=== PATIENT | female | born 2000 | race Caucasian/White ===

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

== ENCOUNTER → 2020-01-10 12:28 | Outpatient (BNVA) | payer MEDICAID, SELFPAY | PROVIDERS: Visit Provider Obstetrics & Gynecology | DX: O99.330 Smoking (tobacco) complicating pregnancy, unspecified trimester (principal); Z34.90 Encounter for supervision of normal pregnancy, unspecified, unspecified trimester; O99.320 Drug use complicating pregnancy, unspecified trimester; Z3A.00 Weeks of gestation of pregnancy not specified | CPT/HCPCS: 80053; 80307; 84315; 85027; 86592; 86762; 86803; 86850; 86900; 87086; 87340 ==

== ENCOUNTER → 2020-01-31 08:25 | Outpatient (BNVA) | payer MEDICAID, SELFPAY | PROVIDERS: Visit Provider Obstetrics & Gynecology | DX: Z34.90 Encounter for supervision of normal pregnancy, unspecified, unspecified trimester (principal) | CPT/HCPCS: 84315; 87491; 87591 ==

== ENCOUNTER → 2020-02-21 15:23 | Outpatient (BNVA) | payer MEDICAID, SELFPAY | PROVIDERS: Visit Provider Nurse Practitioner Women's Health | DX: R82.71 Bacteriuria (principal) | CPT/HCPCS: 84315; 87077; 87086; 87184 ==

== ENCOUNTER → 2020-03-21 10:30 | Outpatient (BNVA) | payer MEDICAID, SELFPAY | PROVIDERS: Visit Provider Obstetrics & Gynecology | DX: O99.320 Drug use complicating pregnancy, unspecified trimester (principal); O99.330 Smoking (tobacco) complicating pregnancy, unspecified trimester; R82.71 Bacteriuria | CPT/HCPCS: 80307; 84315 ==

== ENCOUNTER → 2020-03-27 12:53 | Outpatient (BNVA) | payer MEDICAID, SELFPAY | PROVIDERS: Visit Provider Nurse Practitioner Family | DX: Z20.828 Contact with and (suspected) exposure to other viral communicable diseases (principal); J98.8 Other specified respiratory disorders; B97.89 Other viral agents as the cause of diseases classified elsewhere | CPT/HCPCS: 87635 ==

== ENCOUNTER → 2020-04-17 12:15 | Outpatient (BNVA) | payer MEDICAID, SELFPAY | PROVIDERS: Visit Provider Obstetrics & Gynecology | DX: O99.320 Drug use complicating pregnancy, unspecified trimester (principal); O99.330 Smoking (tobacco) complicating pregnancy, unspecified trimester; R82.71 Bacteriuria | CPT/HCPCS: 84315; 87086 ==

== ENCOUNTER 2020-05-13 13:12 | Outpatient (CLI) | payer MEDICAID, SELFPAY ==
[2020-05-13] VITALS (10 sets, daily range): BP systolic 98–121; BP diastolic 55–65; PULSE 74–90; RESP 16; TEMP 36.3; BMI 31.4
[2020-05-13 15:13] LABS: Bilirubin Urine Neg (Negative); Blood Urine Neg (Negative); Glucose Urine UA Norm (Normal); Ketones Urine Negative (Negative); Leukocyte Esterase Urine Negative (Negative); Nitrate Urine Negative (Negative); Protein Urine Neg (Negative); Specific Gravity, Urine 1.015 (1.005-1.030); Sulfosalicylic Acid Urine Negative (Negative); Urine Appearance Clear (CLEAR); Urine Color Yellow (Yellow); Urobilinogen Urine Norm (Negative); pH Urine 9 (5-7)
[2020-05-13 15:15] LABS: Bacteria Urine 2+ /hpf; Mucus Urine 1+ /hpf; WBC Urine 0-4 /hpf (0-5)
[2020-05-13 15:16] LABS: Add Urine Culture? No
== END 2020-05-13 15:35 | disposition home or self-care (01) ==
LOC: OPOB 13:20 → OBGYN 15:21
PROVIDERS: Visit Provider Obstetrics & Gynecology
DX: O26.899 Other specified pregnancy related conditions, unspecified trimester (principal); Z3A.00 Weeks of gestation of pregnancy not specified; M54.9 Dorsalgia, unspecified; R10.2 Pelvic and perineal pain
CPT/HCPCS: 59025; 81001; 87086; 99211

== ENCOUNTER → 2020-05-18 09:05 | Outpatient (BNVA) | payer MEDICAID, SELFPAY | PROVIDERS: Visit Provider Obstetrics & Gynecology | DX: O99.320 Drug use complicating pregnancy, unspecified trimester (principal); O99.330 Smoking (tobacco) complicating pregnancy, unspecified trimester; R82.71 Bacteriuria; Z3A.00 Weeks of gestation of pregnancy not specified | CPT/HCPCS: 82950; 84315; 85027 ==

== ENCOUNTER 2020-06-27 12:28 | Outpatient (CLI) | payer MEDICAID, SELFPAY ==
[2020-06-27] VITALS (8 sets, daily range): BP systolic 119–129; BP diastolic 58–76; PULSE 70–126; RESP 18; TEMP 36.4; BMI 32.4
--- NOTE | 2020-06-27 13:18 | US_ITS ---
WS: [id number] BIOPHYSICAL PROFILE HISTORY: Decreased movement COMPARISON: 03/19/2020 Cardiac activity: 131 bpm. Cervix: closed. Position: Vertex. Placenta: Anterior, no previa or abruption. Placenta grade: 2 Parameters are as follows: Breathin Movement: 2 Tone: 2 Fluid volume: 2 Largest pocket of amniotic fluid 4.2 cm. US/US OB BPP wo NST [id number] IMPRESSION: 1. Biophysical profile score: 8/8. 2. Vertex position.
[2020-06-27 14:10] LABS: Nitrazine Paper, PH Negative
== END 2020-06-27 14:25 | disposition home or self-care (01) ==
LOC: OPOB 12:30 → OBGYN 12:31
PROVIDERS: Obstetrics & Gynecology; Visit Provider Obstetrics & Gynecology
DX: O36.8190 Decreased fetal movements, unspecified trimester, not applicable or unspecified (principal); N89.8 Other specified noninflammatory disorders of vagina; Z3A.00 Weeks of gestation of pregnancy not specified
CPT/HCPCS: 59025; 76819; 83986; 99211

== ENCOUNTER → 2020-07-10 08:07 | Outpatient (BNVA) | payer MEDICAID, SELFPAY | PROVIDERS: Visit Provider Obstetrics & Gynecology | DX: O99.013 Anemia complicating pregnancy, third trimester (principal); R82.71 Bacteriuria; O99.330 Smoking (tobacco) complicating pregnancy, unspecified trimester; O99.320 Drug use complicating pregnancy, unspecified trimester; O36.60X0 Maternal care for excessive fetal growth, unspecified trimester, not applicable or unspecified; Z3A.00 Weeks of gestation of pregnancy not specified | CPT/HCPCS: 80307; 84315; 87081 ==

== ENCOUNTER 2020-07-12 09:10 | Outpatient (CLI) | payer MEDICAID, SELFPAY ==
[2020-07-12 09:27] VITALS: BP 106/60; PULSE 117
[2020-07-12 09:39] VITALS: TEMP 36.6; BMI 34.3
[2020-07-12 09:57] VITALS: BP 115/73; PULSE 111
[2020-07-12 10:52] VITALS: BP 109/59; PULSE 95
[2020-07-12 11:00] VITALS: BP 109/59; PULSE 95; RESP 18; TEMP 36.6
== END 2020-07-12 11:00 | disposition home or self-care (01) ==
LOC: OPOB 09:14 → OBGYN 09:26
PROVIDERS: Visit Provider Obstetrics & Gynecology
DX: O26.899 Other specified pregnancy related conditions, unspecified trimester (principal); Z3A.00 Weeks of gestation of pregnancy not specified; R10.2 Pelvic and perineal pain
CPT/HCPCS: 99211

== ENCOUNTER 2020-07-19 00:44 | Outpatient (CLI) | payer MEDICAID, SELFPAY ==
[2020-07-19] VITALS (16 sets, daily range): BP systolic 114–124; BP diastolic 78–79; PULSE 66–98; RESP 17–18; TEMP 36.3–36.6; O2SAT 97–100; BMI 34.1
== END 2020-07-19 03:13 | disposition home or self-care (01) ==
LOC: OPOB 00:49 → OBGYN 00:50
PROVIDERS: Visit Provider Obstetrics & Gynecology
DX: O26.899 Other specified pregnancy related conditions, unspecified trimester (principal); Z3A.00 Weeks of gestation of pregnancy not specified; R10.9 Unspecified abdominal pain
CPT/HCPCS: 59025; 99211

== ENCOUNTER 2020-07-25 15:53 | Inpatient (IN) | payer MEDICAID, SELFPAY ==
[2020-07-25] VITALS (90 sets, daily range): BP systolic 94–149; BP diastolic 52–87; PULSE 68–190; RESP 15–18; TEMP 36.3–37.8; O2SAT 91–100; BMI 34.4
[2020-07-25 02:10] LABS: Basophils % 0.2 %; Eosinophils % 0.2 %; Hematocrit 33.7 % (37.0-47.0); Hemoglobin 10.5 g/dL (11.5-15.3); Lymphocytes # 1.9 10^3/uL (1.5-6.5); Lymphocytes % 16.9 %; Mean Corpuscular HGB Conc 31.2 g/dL (30.0-36.0); Mean Corpuscular Hemoglobin 25.2 pg (28.0-34.0); Mean Platelet Volume 10.7 fL (7.4-10.4); Monocytes # 0.7 10^3/uL (0.2-0.9); Neutrophils # 8.49 10^3/uL (1.8-8.0); Neutrophils % 76.1 %; Nucleated Red Blood Cells % 0 %; Platelet Count 295 10^3/cmm (130-400); Red Blood Count 4.16 10^6/uL (4.1-5.3); Red Cell Distribution Width 14.6 % (12.1-15.1); White Blood Count 11.2 10^3/uL (4.5-13.0)
[2020-07-25] MEDS: ampicillin 2,000 MG in sodium chloride 0.9% (plus) 50 ML 100 MG IV (02:22)
[2020-07-25] MEDS: dextrose 5%-lactated ringers 1,000 ML 125 ML IV ×2 (02:22→10:20)
[2020-07-25] MEDS: fentaNYL 50 mcg/mL INJ 2mL IVP ×2 (02:44→04:16)
[2020-07-25] MEDS: lactated ringers 1,000 ML 999 ML IV ×2 (03:25→11:09)
[2020-07-25] MEDS: ondansetron 2 mg/ML SDV 2 mL 4 MG IVP ×2 (03:51→13:09)
--- NOTE | 2020-07-25 04:30 | ANES.PREANE2 ---
Pre-Anesthetic Assessment Pre-Anesthetic Assessment: Height/Weight: Height 1.7 m Weight 99.79 kg Temp Pulse Resp BP 97.9 F 77 15 122/63 07/25/20 01:20 07/25/20 04:10 07/25/20 04:16 07/25/20 04:10 Preop Diagnosis: labor pains Proposed Procedure: epiduralk Was Beta Stephanie taken within 24 hours: N/A Was Clonidine taken within 24 hours: N/A Exam: Pre-Anes Outpt Exam: alert, oriented x 3, clear to auscultation bilaterally and regular rate & rhythm Airway: Submandibular: WNL Cervical ROM: WNL MP: 2 Dentition: Full Pulmonary: Pulmonary: None reported CV/HEM: CV/HEM: Anemia : : None reported Hepatic: Hepatic: None reported GI: GI: None reported Metabolic: Metabolic: None reported Musc/skel: Musc/skel: None reported Neuropsych: Neuropsych: None reported Anesthetic Plan: ASA status: 2 Anesthesia: Regional (specify below) Risk of > 500 ml blood loss (7ml/kg in children): No Meds/Allergies Current Medications: Current Medications Generic Name Dose Route Start Last Admin Trade Name Freq PRN Reason Stop Dose Admin Fentanyl 25 - 100 mcg 07/25/20 01:50 07/25/20 04:16 Fentanyl 50 Mcg/ Ml Inj 2ml IVP 50 mcg Q1H PRN Administration SEVERE PAIN Dextrose/Lactated Ringer's 1,000 mls @ 125 m ls/hr 07/25/20 02:00 07/25/20 02:22 Dextrose 5%-Lact ated Ringers IV 125 mls/hr .Q8H ROMERO Administration Lactated Ringer's 1,000 mls @ 999 m ls/hr 07/25/20 03:13 07/25/20 03:25 Lactated Ringers IV 999 mls/hr .Q1H1M PRN Administration See label comment s Ondansetron HCl 4 mg 07/25/20 01:50 07/25/20 03:51 Ondansetron 2 Mg /Ml Sdv 2 Ml IVP 4 mg Q4H PRN Administration NAUSEA AND VOMITI NG PFSH Anesthesia PFSH: Medical History No pertinent past medical history Denies diabetes, asthma, hypertension, seizures, DVT/PE PMD: Dr. Means Surgical History Hx of tonsillectomy September 2018 Hx of wisdom tooth extraction 2015 Family History Grandfather Diabetes Paternal Family/Other Heart disease maternal aunt Denies family history of Colon cancer Ovarian cancer Hypercholesteremia Breast cancer Bleeding disorder Hypertension Uterine cancer Thyroid disease Stroke Social History Smoking and tobacco status: former smoker Alcohol intake: former Additional social history: Tobacco: former smoker Drugs: marijuana hx Alcohol: denies Female Reproductive History: : 1 Data Anesthesia CBC & Chem 7: 07/25/20 02:00 Other Labs: Laboratory Results - last 48 hr 07/25/20 02:00 WBC 11.2 RBC 4.16 Hgb 10.5 L Hct 33.7 L MCV 81.0 MCH 25.2 L MCHC 31.2 RDW 14.6 Plt Count 295 MPV 10.7 H Neut % (Auto) 76.1 Lymph % (Auto) 16.9 [place] % (Auto) 6.0 Eos % (Auto) 0.2 Baso % (Auto) 0.2 Neut # (Auto) 8.49 H Lymph # (Auto) 1.9 [place] # (Auto) 0.7 Eos # (Auto) 0.0 Baso # (Auto) 0.0 Nucleated RBC % (auto) 0 Nucleated RBCs # 0.0 Cardiac Studies: No Data to Display
--- NOTE | 2020-07-25 05:17 | P.ANES_ITS ---
Anesthesia Procedures Procedure/Date: 07/25/20 epidural Procedure Narrative: epidural complete, bolus given, epidural pump initiated with INTERIOR ASSEMBLIES INSTALLER education given, vitals taken during procedure using OBIX system and satisfactory throughout, patient admits to decrease pain, report of procedure to OB RN Epidural: Time Out Performed: Yes Consents Signed: Procedure Consent Consent: requested by attending/covering physician, from patient, risks and benefits reviewed and patient agrees to proceed Lumbar Level: L3-L4 Epidural position: sitting Epidural procedure: sterile prep of area, 1% lidocaine to numb the area (3 mL), 18 g needle, negative for paresthesia passed, neg for paresthesia, test dose given, 1.5% xylocaine 1:200k epi (5 mL), 0.2% Ropivacaine bolus ml (5 mL), placed PCEA, no systemic response, sterile dressing applied, L.U.D. no apparent complications and 0.2% Ropiavacaine @ mls/hr (13 mL/hr)
--- NOTE | 2020-07-25 05:54 | PC.NURSE ---
IV catheter noted to be pulled partially out. Dressing changed, IV advanced and secured.
[2020-07-25] MEDS: ampicillin 1,000 MG in sodium chloride 0.9% (plus) 50 ML 100 MG IV ×3 (06:21→14:29)
[2020-07-25] MEDS: oxytocin 30 UNIT/500 ML BAG IV (12:21)
--- NOTE | 2020-07-25 16:16 | PM.DELIVERY ---
Delivery Note: Date of delivery: July 25, 2020 Pre-delivery diagnoses: iup at 38 6/7, labor at term Procedure: Op report anesthesia: Epidural Delivering Physician: sabas Estimated blood loss (mL): 50 Delivery: The patient had complete cervical dilation and began to push. The head delivered in the straight OA position over an intact perineum under epidural anesthesia. The nose and mouth were bulb suctioned. The shoulders and body delivered atraumatically. The baby was placed onto the mother's abdomen. The cord was clamped and cut. Cord blood was obtained. The placenta delivered spontaneously. It was inspected and found to be intact. Inspection of the perineum revealed bilateral periurethral tears and a periclitoral tear. Estimated blood loss 50 mL. Apgars on baby were 8 at 1 minute and 9 at 5 minutes. Weight of baby is 8 pounds 5 ounces. Mother and baby were stable post delivery. Coding Level of Care Code Acute Residential Mental Health Worker for Segundo Mcqueen
[2020-07-25] MEDS: acetaminophen 325 mg Tablet 650 MG PO (16:19)
--- NOTE | 2020-07-25 16:20 | P.HP_ITS ---
Providers/Chief Complaint Admitting Physician: Elzbieta Mota MD Chief Complaint: contractions HPI [facility] History of Present Illness Diana Mari is a 19 year old female at 38 6/7 weeks, who pr esents in active labor. Her is complicated by GBS positive and anemia Present Details : 1 Para: 0 Labs Rubella: Immune RPR: Negative GBS: Positive Review of Systems General: Reports: 10 or more systems reviewed and unremarkable except in HPI and below Medications/Allergies Home Medications Medication Instructions Recorded Confirmed Last Taken Type prenat.vits,raquel,ipr-pgfo-rrjbh 1 tab PO DAILY 05/18/20 07/24/20 07/11/20 21:00 History ferrous sulfate 325 mg (65 mg 325 mg PO BID #90 tab 05/22/20 07/24/20 07/11/20 2 1:00 Rx iron) tablet breast pump #1 ea 05/28/20 07/24/20 Unknown Rx Allergies Allergy/AdvReac Type Severity Reaction Status Date / Time No Known Allergies Allergy Verified 07/24/20 08:54 PFSH [facility] PFSH: Medical History No pertinent past medical history Denies diabetes, asthma, hypertension, seizures, DVT/PE PMD: Dr. Means Surgical History Hx of tonsillectomy September 2018 Hx of wisdom tooth extraction 2015 Family History Grandfather Diabetes Paternal Family/Other Heart disease maternal aunt Denies family history of Colon cancer Ovarian cancer Hypercholesteremia Breast cancer Bleeding disorder Hypertension Uterine cancer Thyroid disease Stroke Social History Smoking and tobacco status: former smoker Alcohol intake: former Additional social history: Tobacco: former smoker Drugs: marijuana hx Alcohol: denies History History History 1 Term Miscarriages/Ectopic Living Children Care [facility]ENTIN Calculator Estimated Delivery Date Method Current WG Current Estimate 08/02/20 LMP (Uncertain) 38w 6d Other Estimates 08/02/20 Ultrasound #1 38w 6d 07/20/20 Ultrasound #2 40w 5d Expected Delivery Route/Plan VAGINAL Specific Issues/Plans * Tobacco use -- stopped with confirmation of * Marijuana use-- stopped with confirmation of * GBS bacteriuria-antibiotics in labor * Anemia in third trimester-hemoglobin 10.5-on iron Vitals/I&O/Wt Last Vital Signs Temp 97.9 F 07/25/20 16:08 Pulse 92 07/25/20 16:05 Resp 15 07/25/20 04:16 BP 131/72 07/25/20 16:05 Pulse Ox 100 07/25/20 05:47 07/25/20 07/25/20 07/25/20 06:59 14:59 22:59 Intake Total 1231.25 / 1231.25 2092.400 / 2092.400 Output Total 100 / 100 345 / 345 Balance 1131.25 / 1131.25 1747.400 / 1747.400 Weight last 48 hrs Weight 220 lb Physical Exam Const: COMMON NORMALS: no acute distress, average body habitus, patient oriented x3, no limitations, healthy appearing, alert and well nourished GENERAL APPEARANCE: cooperative, comfortable, well kempt and well developed ORIENTATION/CONSCIOUSNESS: Yes awake, Yes oriented to person, Yes oriented to place and Yes oriented to time Neck/C-Spine: COMMON NORMALS: full ROM and supple Resp: COMMON NORMALS: normal respiratory effort EFFORT & INSPECTION: Yes able to speak in complete sentences GI: COMMON NORMALS: non-tender : COMMON NORMALS: Yes normal external appearance and Yes normal appearance of the vagina Extremity: COMMON NORMALS: no clubbing, cyanosis or edema Psych: COMMON NORMALS: mental status grossly normal, Normal thought process present, cooperative, normal affect, speech normal and activity/motor behavior normal APPEARANCE: Yes grossly normal and Yes well kempt ATTITUDE: Yes calm and Yes engaged ACTIVITY/MOTOR BEHAVIOR: Yes appropriate eye contact SPEECH: Yes normal speech Urinary Catheter Management^: Ochoa Latex: Cath Placed During This Visit: yes Reason for Continuing Indwelling Catheter: Other Urinary Catheter Date of Insertion: 07/25/20 Urinary Catheter Time of Insertion: 05:40 Data : 07/25/20 02:00 A&P Assessment and plan (1) Anemia affecting in third trimester: anticipate ampicilin for GBS prophylaxis Status: Acute (2) GBS bacteriuria: Status: Acute (3) Supervision of normal : Status: Acute Attestations Medical Necessity Statement*: patient is in active labor. she will be admitted in patient Coding Level of Care Code Acute Configurator for [facility] Diagnoses Anemia affecting in third trimester O99.013 GBS bacteriuria R82.71 Supervision of normal Z34.90
[2020-07-25] MEDS: ibuprofen 800 mg tablet PO (21:58)
[2020-07-26] VITALS (7 sets, daily range): BP systolic 108–120; BP diastolic 58–79; PULSE 67–88; RESP 16; TEMP 35.9–36.6
[2020-07-26 04:18] LABS: Hematocrit 28.3 % (37.0-47.0); Mean Corpuscular HGB Conc 31.8 g/dL (30.0-36.0); Mean Corpuscular Volume 81.8 fL (81-99); Mean Platelet Volume 11.3 fL (7.4-10.4); Platelet Count 227 10^3/cmm (130-400); Red Blood Count 3.46 10^6/uL (4.1-5.3); Red Cell Distribution Width 15.2 % (12.1-15.1); White Blood Count 16.6 10^3/uL (4.5-13.0)
[2020-07-26] MEDS: prenatal vitamin Capsule 1 CAP PO (08:14)
[2020-07-26] MEDS: ibuprofen 800 mg tablet PO ×2 (08:14→14:44)
[2020-07-26] MEDS: docusate sodium 100 mg Capsule PO (08:14)
--- NOTE | 2020-07-26 11:43 | P.PN_ITS ---
ENGLISH LANGUAGE LEARNER TEACHER Subjective Subjective: Interval history: The patient is doing well. She doesnt have any complaints today. the baby is in the nursery due to some transient hypoxia. normal lochia. she is tolerating a regular diet and ambulating well. Labor: Station: +2 Amniotic Membrane Status: Ruptured Monitor Mode: External Contraction Pattern: Regular Vitals/I&O/Wt Last Vital Signs Temp 97.2 F L 07/26/20 09:33 Pulse 67 07/26/20 09:33 Resp 16 07/26/20 05:15 BP 115/59 07/26/20 09:33 Pulse Ox 100 07/25/20 05:47 07/25/20 07/26/20 07/26/20 22:59 06:59 14:59 Intake Total 45.3 / 2137.700 Output Total 1500 / 1845 Balance -1454.7 / 292.700 Weight last 48 hrs Weight 220 lb Physical Exam Const: COMMON NORMALS: no acute distress, average body habitus, patient oriented x3, no limitations, healthy appearing and alert GENERAL APPEARANCE: cooperative, comfortable, well kempt and well developed ORIENTATION/CONSCIOUSNESS: Yes awake, Yes oriented to person, Yes oriented to place and Yes oriented to time Neck/C-Spine: COMMON NORMALS: full ROM and supple Resp: COMMON NORMALS: normal respiratory effort EFFORT & INSPECTION: Yes able to speak in complete sentences GI: COMMON NORMALS: Soft to palpation and non-tender PALPATION: Yes Soft to palpation OTHER: fundus firm Extremity: COMMON NORMALS: no clubbing, cyanosis or edema Neuro: COMMON NORMALS: patient oriented x3 SENSORIUM/ORIENTATION: Yes alert, Yes oriented to person, Yes oriented to place and Yes oriented to time Psych: COMMON NORMALS: mental status grossly normal, Normal thought process present, cooperative, normal affect, speech normal and activity/motor behavior normal APPEARANCE: Yes well kempt ATTITUDE: Yes calm and Yes engaged ACTIVITY/MOTOR BEHAVIOR: Yes appropriate eye contact SPEECH: Yes normal speech THOUGHT PROCESS: Normal thought process present Urinary Catheter Management^: Ochoa Latex: Cath Placed During This Visit: yes, but has since been removed by the nurse Reason for Continuing Indwelling Catheter: Required Immobilization for Trauma or Surgery or Anesthesia Urinary Catheter Date of Insertion: 07/25/20 Urinary Catheter Time of Insertion: 05:40 Date Urinary Catheter Removed: 07/25/20 Time Urinary Catheter Discontinued: 14:45 Data : 07/26/20 04:05 A&P Assessment and plan (1) state: Status: Acute Attestations Medical Necessity Statement*: the patient is and expected to be here two midnights Coding Level of Care Code Acute Hole Digger Truck Driver for Chg Fwd Diagnoses state Z39.2
--- NOTE | 2020-07-27 15:06 | PM.DCS ---
Discharge Providers Date of Admission: 07/25/20 15:53 Date of Discharge: July 27, 2020 Attending Provider at Admission: Elzbieta Mota MD Attending Provider at Discharge: Elzbieta Mota MD Diagnoses at Discharge Discharge Diagnosis (1) state: Status: Acute Reason for Visit Reason for Visit: contractions Hospital Course Hospital Course The patient presented at 38 6/7 weeks in active labor. She progressed to 5 cm dilation and received an epidural. She had SROM and received a small amount of pitocin to augment her contractions. She had spontaneous delivery of a term female . The patient did well post . She was GBS positive and the baby was initially doing well, however, started having some issues with breathing and was ultimately transferred to the NICU in [place]. The patient requested discharge to be with her baby. Physical Exam Urinary Catheter Management^: Ochoa Latex: Cath Placed During This Visit: yes, but has since been removed by the nurse Reason for Continuing Indwelling Catheter: Required Immobilization for Trauma or Surgery or Anesthesia Urinary Catheter Date of Insertion: 07/25/20 Urinary Catheter Time of Insertion: 05:40 Date Urinary Catheter Removed: 07/25/20 Time Urinary Catheter Discontinued: 14:45 Discharge Data Vitals: Last Vital Signs Temp 97.8 F 07/26/20 15:48 Pulse 88 07/26/20 15:48 Resp 16 07/26/20 15:48 BP 108/79 07/26/20 15:48 Pulse Ox 100 07/25/20 05:47 Discharge Plan Discharge Patient Disposition: Home Prescriptions: Continued (DME) breast pump [Pump In Style Advanced] Device See Rx Instructions .ROUTE .MEDSUPPLY Qty: 1 RF: 0 prenat.vits,raquel,[id number]-igpg-dlbnp Tablet 1 tab PO DAILY RF: 0 ferrous sulfate 325 mg (65 mg iron) tablet 325 mg PO BID Qty: 90 RF: 3 Discharge Orders: Discharge Order (Routine); Ordered 07/26/20 Ordered By: Elzbieta Mota Referrals: Raj Padilla MD [Physician] - 09/05/20 7:45 am (6 post- appointment 09/05/2020 at 7:45) Discharge Diet: Usual diet Discharge Activity: Limit activity as instructed Patient Instructions: Vitamins (By mouth), Your Baby (DC), Pre-eclampsia and Eclampsia (DC), Bleeding (DC), OB Discharge Report, OB Food/Drug Interaction Guide, Opioid Safety, OB Home Care, OB Proud Parent Packet, OB Vaginal Deliveries - [facility] Activity Restrictions/Additional Instructions: Please call the OB Department or [facility] with any questions or concerns. Discharge Attestations Time Spent in Discharge Care*: other Quality Metrics Clinical Quality Measures During this hospital stay, did patient experience: None Coding Level of Care Code Acute Chg FW DC note Diagnoses state Z39.2
== END 2020-07-26 15:49 | disposition home or self-care (01) | DRG 807 ==
LOC: OPOB 15:53 → OBGYN 15:53
PROVIDERS: Admitting Provider Obstetrics & Gynecology; Visit Provider Obstetrics & Gynecology
DX: O99.824 Streptococcus B carrier state complicating childbirth (principal); Z37.0 Single live birth; O99.02 Anemia complicating childbirth; D50.9 Iron deficiency anemia, unspecified; O36.63X0 Maternal care for excessive fetal growth, third trimester, not applicable or unspecified; Z3A.38 38 weeks gestation of pregnancy; Z87.891 Personal history of nicotine dependence
CPT/HCPCS: 36415; 51702; 59025; 59409; 83986; 85025; 85027; 98960; 99211; J0290; J2405; J2795; J3010

== ENCOUNTER → 2020-09-11 15:15 | Outpatient (BNVA) | payer MEDICAID, SELFPAY | PROVIDERS: Visit Provider Obstetrics & Gynecology | DX: Z30.9 Encounter for contraceptive management, unspecified (principal) | CPT/HCPCS: 81025 ==

== ENCOUNTER 2021-08-05 09:21 | Emergency (ER) | payer MEDICAID, SELFPAY ==
[2021-08-05 10:26] VITALS: BP 95/76; PULSE 97; RESP 14; TEMP 36.8; O2SAT 99; BMI 29.7
--- NOTE | 2021-08-05 10:59 | W.ED.ABDPA2 ---
HPI - Abdominal Pain General: Chief Complaint: Abdominal Pain Stated Complaint: Throwing up blood Time Seen by Provider: 08/05/21 09:23 Source: patient Mode of arrival: ambulatory Limitations: no limitations History of Present Illness: Patient is a nice 20-year-old female who presents to ED today with a complaint of hematemesis. Patient tells me she woke up this morning around 4 AM with diffuse watery diarrhea. She states she also felt very nauseous. She states around 8 AM she began having vomiting. Patient states she did notice hematemesis even with her first episode of vomiting and denies a history of dry heaving prior to that. She states she has had approximately 4-6 episodes of emesis with what she quantifies as about 1/4 cup of bright red blood per episode. She is not noticing any blood in her stools. She does have some abdominal cramping mainly around her periumbilical region. She has not been running fevers. She does complain of some mild body aches. Denies etoh/NSAID use. Of note she does state she ate [place] chicken around 6pm yesterday evening for dinner. MD elicited complaint: abdominal pain Pertinent past history: none Severity: mild Quality: cramping Radiation: none Migration to: no migration Exacerbating factors: vomiting Relieving factors: nothing Context: possible food poisoning Associated Symptoms: Reports GI cramping, diarrhea, hematemesis, nausea and vomiting; Denies chills, dysuria, fever(s), hematochezia, hematuria and melena Related Data: Patient : No Review of Systems Const: Reports: body aches; Denies: fever(s), chills, fatigue or malaise ENMT: Denies: throat pain or odynophagia Card: Denies: chest pain Resp: Denies: dyspnea GI: Reports: abdominal pain, nausea, vomiting, hematemesis, diarrhea and GI cramping; Denies: rectal swelling, rectal itching, hematochezia or melena : Denies: flank pain, dysuria or hematuria Musc: Denies: neck pain, back pain, extremity pain or joint pain Skin/Breast: Denies: rash Neuro: Denies: headache(s), numbness in extremities, weakness in extremities, lack of coordination, difficulty walking, dizziness or confusion [facility] PFSH: Medical History No pertinent past medical history Denies diabetes, asthma, hypertension, seizures, DVT/PE PMD: Dr. Means Surgical History Hx of tonsillectomy September 2018 Hx of wisdom tooth extraction 2015 Family History Grandfather Diabetes Paternal Family/Other Heart disease maternal aunt Denies family history of Colon cancer Ovarian cancer Hypercholesteremia Breast cancer Bleeding disorder Hypertension Uterine cancer Thyroid disease Stroke Physical Exam Const: COMMON NORMALS: no acute distress, average body habitus, patient oriented x3, no limitations, healthy appearing, alert and well nourished ORIENTATION/CONSCIOUSNESS: Yes awake, Yes oriented to person, Yes oriented to place and Yes oriented to time Eye: SCLERA: sclerae normal Neck/C-Spine: GENERAL: Yes normal visual inspection Resp: COMMON NORMALS: normal respiratory effort and clear to auscultation bilaterally AUSCULTATION: clear to auscultation bilaterally Cardio: COMMON NORMALS: regular rate and regular rhythm RATE: regular rate RHYTHM: regular rhythm GI: COMMON NORMALS: Normal to inspection, nondistended, normoactive bowel sounds present, Soft to palpation, No hepatosplenomegaly present and no masses INSPECTION: Yes normal to inspection AUSCULTATION: Yes normoactive bowel sounds PALPATION: Yes Soft to palpation, Yes Tenderness to palpation present (GI) (mild tenderness mid to upper abdomen; non-surgical), No Guarding due to palpation present (GI), No Rigid due to palpation and Yes No hepatosplenomegaly present : COMMON NORMALS: Yes no CVA tenderness BLADDER/KIDNEY EXAM: Yes no CVA tenderness Back/Pelvis: COMMON NORMALS: no CVA tenderness, thoracic and lumbar spine normal to inspection, no thoracic nor lumbar tenderness and thoraco-lumbar ROM normal Extremity: COMMON NORMALS: normal to inspection Neuro: NICOLA COMA SCALE: document GCS findings Nicola coma scale eye opening: Spontaneous Nicola coma scale verbal response: Orientated Nicola coma scale motor response: Obey commands Nicola coma scale total score: 15 COMMON NORMALS: patient oriented x3, moves all extremities, no focal motor deficits and no sensory deficits noted SENSORIUM/ORIENTATION: Yes alert, Yes oriented to person, Yes oriented to place and Yes oriented to time Skin: COMMON NORMALS: no rashes or lesions noted GENERAL SKIN EXAM: no rashes or lesions noted Course Vital Signs: Vital signs: Vital Signs Temperature 98.3 F 08/05/21 10:26 Pulse Rate 95 08/05/21 14:00 Respiratory Rate 16 08/05/21 14:00 Blood Pressure 109/79 08/05/21 14:00 Pulse Oximetry 98 08/05/21 14:00 MDM - Abdominal Pain Medical Decision Making Patient has not had any vomiting or diarrhea during her stay. She has minimal abdominal tenderness on exam certainly non-surgical at this time. Patient's vital signs have been stable during her visit. H&H today is 17.51. Patient has no obvious risk factors for gastric or duodenal ulcer. No history of GI bleed. Symptoms seemed to have started fairly acutely following eating [place] yesterday evening. He has had associated diarrhea. I think symptoms most likely secondary to gastritis/gastroenteritis. We did discuss CT imaging but patient declined at this time. Patient will be placed on Protonix and Zofran. Recommended bland diet over the next 48 hours and advance as tolerated. She was given strict instructions for returning to the emergency department otherwise I will have her follow-up with general surgery they can evaluate need for endoscopy if symptoms persist. Lab Data : 08/05/21 11:50 08/05/21 11:50 Labs/Radiology: Laboratory Results WBC 10.6 10^3/uL (4.5-13.0) 08/05/21 11:50 RBC 6.19 10^6/uL (4.1-5.3) H 08/05/21 11:50 Hgb 17.1 g/dL (11.5-15.3) H 08/05/21 11:50 Hct 51.0 % (37.0-47.0) H 08/05/21 11:50 MCV 82.4 fl (81-99) 08/05/21 11:50 MCH 27.6 pg (28.0-34.0) L 08/05/21 11:50 MCHC 33.5 g/dL (30.0-36.0) 08/05/21 11:50 RDW 12.5 % (12.1-15.1) 08/05/21 11:50 Plt Count 269 10^3/cmm (130-400) 08/05/21 11:50 MPV 10.0 fL (7.4-10.4) 08/05/21 11:50 Neut % (Auto) 91.0 % 08/05/21 11:50 Lymph % (Auto) 5.5 % 08/05/21 11:50 [place] % (Auto) 2.9 % 08/05/21 11:50 Eos % (Auto) 0.1 % 08/05/21 11:50 Baso % (Auto) 0.2 % 08/05/21 11:50 Neut # (Auto) 9.68 10^3/uL (1.8-8.0) H 08/05/21 11:50 Lymph # (Auto) 0.6 10^3/uL (1.5-6.5) L 08/05/21 11:50 [place] # (Auto) 0.3 10^3/uL (0.2-0.9) 08/05/21 11:50 Eos # (Auto) 0.0 10^3/uL (0.0-0.8) 08/05/21 11:50 Baso # (Auto) 0.0 10^3/uL (0.0-0.1) 08/05/21 11:50 Nucleated RBC % (auto) 0 % 08/05/21 11:50 Nucleated RBCs # 0.0 /100WBC 08/05/21 11:50 PT 13.60 SECONDS (12.1-14.9) 08/05/21 11:50 INR 1.01 (0.8-1.2) 08/05/21 11:50 APTT 28.1 SECONDS (23.9-36.7) 08/05/21 11:50 Sodium 136 mmol/L (136-145) 08/05/21 11:50 Potassium 4.0 mmol/L (3.5-5.1) 08/05/21 11:50 Chloride 99 mmol/L (98-107) 08/05/21 11:50 Carbon Dioxide 23 mmol/L (22-29) 08/05/21 11:50 Anion Gap 18.0 (5-19) 08/05/21 11:50 BUN 19 mg/dL (6-20) 08/05/21 11:50 Creatinine 0.6 mg/dL (0.5-0.9) 08/05/21 11:50 GFR Calculation 127.5 mL/min (90-130) 08/05/21 11:50 Glucose 96 mg/dL (65-115) 08/05/21 11:50 Calculated Osmolality 284 mOsm/kg (285-295) L 08/05/21 11:50 Calcium 10.2 mg/dL (8.5-10.5) 08/05/21 11:50 Total Bilirubin 0.6 mg/dL (0.15-1.2) 08/05/21 11:50 AST 18 U/L (0-32) 08/05/21 11:50 ALT 13 U/L (0-33) 08/05/21 11:50 Alkaline Phosphatase 86 IU/L (35-105) 08/05/21 11:50 Total Protein 8.9 g/dL (6.6-8.7) H 08/05/21 11:50 Albumin 4.9 g/dL (3.5-5.2) 08/05/21 11:50 Globulin 4.0 g/dL (1.3-4.6) 08/05/21 11:50 HCG, Qual Negative (Negative) 08/05/21 11:50 Urine Color Yellow (Yellow) 08/05/21 12:34 Urine Appearance Clear (CLEAR) 08/05/21 12:34 Urine pH 8 (5-7) H 08/05/21 12:34 Ur Specific [place] 1.005 (1.005-1.030) 08/05/21 12:34 Urine Protein Neg (Negative) 08/05/21 12:34 Urine Glucose (UA) Norm (Normal) 08/05/21 12:34 Urine Ketones 1+ (Negative) H 08/05/21 12:34 Urine Blood Neg (Negative) 08/05/21 12:34 Urine Nitrate Negative (Negative) 08/05/21 12:34 Urine Bilirubin Neg (Negative) 08/05/21 12:34 Prot Sulfosalicylic Acd Negative (Negative) 08/05/21 12:34 Urine Urobilinogen Norm mg/dL (Negative) 08/05/21 12:34 Ur Leukocyte Esterase Negative (Negative) 08/05/21 12:34 Discharge Plan Discharge Patient Disposition: Home Clinical Impression: Gastritis Qualifiers: Gastritis type: unspecified gastritis Chronicity: acute Gastritis bleeding: with bleeding Qualified Code(s): K29.01 - Acute gastritis with bleeding Condition: Stable Prescriptions: New ondansetron 4 mg tablet,disintegrating 4 mg PO Q8H PRN (Reason: nausea and vomiting) Qty: 14 0RF Protonix 40 mg tablet,delayed release (DR/EC) 40 mg PO DAILY 14 Days Qty: 14 0RF No Action fluconazole [Diflucan] 150 mg tablet 150 mg PO DAILY Qty: 1 0RF clobetasol 0.05 % cream 1 applic topical .every other day 14 Days Qty: 15 0RF Discharge Orders: Discharge ED (Routine); Ordered 08/05/21 Ordered By: Salud Landon Patient Instructions: Gastritis (DC), Gastrointestinal Bleeding (ED) Activity Restrictions/Additional Instructions: As we discussed you need to monitor symptoms closely and return to the emergency department immediately for any further episodes of bloody vomit, bloody or black tarry stools, worsening abdominal pains, fevers greater than 100.4, lightheadedness/dizziness/passing out episodes, racing heart rate, or any other concerns you may have. Placed a referral with case management to get you set up with general surgery for evaluation for possible endoscopy. Coding Level of Care Code ED Non Categorical Preschool Teacher for [place] Fwd Exam Comprehensive
[2021-08-05] MEDS: sodium chloride 0.9% 1,000 ML 999 ML IV (12:00)
[2021-08-05] MEDS: ondansetron 2 mg/ML SDV 2 mL 4 MG IVP (12:00)
[2021-08-05] MEDS: pantoprazole 40 mg SDV IVP (12:00)
[2021-08-05 12:01] LABS: Basophils % 0.2 %; Eosinophils % 0.1 %; Hemoglobin 17.1 g/dL (11.5-15.3); Lymphocytes # 0.6 10^3/uL (1.5-6.5); Lymphocytes % 5.5 %; Mean Corpuscular HGB Conc 33.5 g/dL (30.0-36.0); Mean Corpuscular Hemoglobin 27.6 pg (28.0-34.0); Mean Corpuscular Volume 82.4 fl (81-99); Monocytes # 0.3 10^3/uL (0.2-0.9); Monocytes % 2.9 %; Neutrophils # 9.68 10^3/uL (1.8-8.0); Nucleated Red Blood Cells % 0 %; Platelet Count 269 10^3/cmm (130-400); Red Blood Count 6.19 10^6/uL (4.1-5.3); Red Cell Distribution Width 12.5 % (12.1-15.1); White Blood Count 10.6 10^3/uL (4.5-13.0)
[2021-08-05 12:22] LABS: INR 1.01 (0.8-1.2); Partial Thromboplastin Time 28.1 SECONDS (23.9-36.7)
[2021-08-05 12:25] LABS: HCG, Serum Qual Negative (Negative)
[2021-08-05 12:30] LABS: Alanine Aminotransferase 13 U/L (0-33); Albumin Level 4.9 g/dL (3.5-5.2); Alkaline Phosphatase 86 IU/L (35-105); Aspartate Amino Transferase 18 U/L (0-32); Blood Urea Nitrogen 19 mg/dL (6-20); Calcium 10.2 mg/dL (8.5-10.5); Carbon Dioxide 23 mmol/L (22-29); Chloride 99 mmol/L (98-107); Glomerular Filtration Rate 127.5 mL/min (90-130); Glucose 96 mg/dL (65-115); Osmolality Calculated 284 mOsm/kg (285-295); Sodium 136 mmol/L (136-145); Total Bilirubin 0.6 mg/dL (0.15-1.2); Total Protein 8.9 g/dL (6.6-8.7)
[2021-08-05 12:45] LABS: Add Urine Microscopic? NO; Charge for UA Resulting for Rev
[2021-08-05 12:49] VITALS: BP 106/59; BP 109/69; BP 95/60; PULSE 112; PULSE 124; PULSE 98
[2021-08-05 12:54] LABS: Bilirubin Urine Neg (Negative); Blood Urine Neg (Negative); Glucose Urine UA Norm (Normal); Ketones Urine 1+ (Negative); Leukocyte Esterase Urine Negative (Negative); Nitrate Urine Negative (Negative); Protein Urine Neg (Negative); Specific Gravity, Urine 1.005 (1.005-1.030); Sulfosalicylic Acid Urine Negative (Negative); Urine Appearance Clear (CLEAR); Urine Color Yellow (Yellow); Urobilinogen Urine Norm (Negative); pH Urine 8 (5-7)
[2021-08-05 13:59] VITALS: BP 109/79; PULSE 95; RESP 16; O2SAT 98
[2021-08-05 14:00] VITALS: BP 109/79; PULSE 95; RESP 16; O2SAT 98
--- NOTE | 2021-08-07 19:17 | DCPLANNER ---
Addendum entered by Kathy Pereira 08/23/21 18:10: Patient had a follow up appointment scheduled with general surgery - patient did not attend appointment. Addendum entered by Kathy Pereira 08/15/21 14:47: Patient has a follow up appointment scheduled for Thursday, August 19, [address] at 8:[address] Glass. Clinic will call patient with appointment information. Original Note: anatomic pathology manager had message to schedule a follow up appointment for patient with general surgery. anatomic pathology manager sent patients information to the front office staff at general surgery. Patients information will be printed and reviewed. Clinic will call patient with appointment information.
== END 2021-08-05 14:02 | disposition home or self-care (01) ==
PROVIDERS: Emergency Provider Physician Assistant
DX: K29.01 Acute gastritis with bleeding (principal)
CPT/HCPCS: 80053; 81003; 84703; 85025; 85610; 85730; 96361; 96374; 96375; 99284; C9113; J2405; J7030

== ENCOUNTER 2022-12-12 07:29 | Outpatient (CLI) | payer MEDICAID, SELFPAY ==
[2022-12-12] VITALS (17 sets, daily range): BP systolic 87–132; BP diastolic 50–73; PULSE 88–113; RESP 16–17
[2022-12-12 08:58] LABS: Add Urine Culture? No; Amorphous Sediment Urine 2+ /hpf; Bacteria Urine 3+ /hpf; Bilirubin Urine Neg (Negative); Blood Urine Neg (Negative); Glucose Urine UA Norm (Normal); Ketones Urine Negative (Negative); Leukocyte Esterase Urine Trace (Negative); Nitrate Urine Negative (Negative); Protein Urine Neg (Negative); Squamous Epithelial Cell Urine 15-25 /hpf (0-5); Urine Appearance Hazy (CLEAR); Urine Color Yellow (Yellow); Urobilinogen Urine Norm (Negative); WBC Urine 15-25 /hpf (0-5); pH Urine 7 (5-7)
[2022-12-12] MEDS: lactated ringers 1,000 ML 999 ML IV (10:17)
[2022-12-12] MEDS: cefTRIAXone 1,000 MG in sodium chloride 0.9% (plus) 50 ML 100 MG IV (10:56)
== END 2022-12-12 11:18 | disposition home or self-care (01) ==
LOC: OPOB 07:31 → OBGYN 07:34
PROVIDERS: Visit Provider Family Medicine
DX: O26.899 Other specified pregnancy related conditions, unspecified trimester (principal); Z3A.00 Weeks of gestation of pregnancy not specified; R10.2 Pelvic and perineal pain; M54.50 Low back pain, unspecified
CPT/HCPCS: 59025; 81001; 96372; 99211; J0696; J0702; J7120

== ENCOUNTER 2022-12-13 09:45 | Outpatient (CLI) | payer MEDICAID, SELFPAY ==
[2022-12-13 10:00] VITALS: BP 111/63; PULSE 100; RESP 18
[2022-12-13] MEDS: betamethasone susp 6 mg/mL 5 mL 12 MG IM (10:01)
== END 2022-12-13 10:05 | disposition home or self-care (01) ==
PROVIDERS: Absent Provider Family Medicine; Visit Provider Family Medicine
DX: O26.899 Other specified pregnancy related conditions, unspecified trimester (principal); Z3A.00 Weeks of gestation of pregnancy not specified
CPT/HCPCS: 96372; 99211; J0702

== ENCOUNTER 2022-12-15 18:38 | Outpatient (CLI) | payer MEDICAID, SELFPAY ==
[2022-12-15 19:01] VITALS: BP 127/65; PULSE 91
[2022-12-15 19:13] VITALS: RESP 16; BMI 33.7
[2022-12-15 19:16] VITALS: BP 119/59; PULSE 87
[2022-12-15 19:31] VITALS: BP 120/62; PULSE 98
== END 2022-12-15 19:45 | disposition home or self-care (01) ==
LOC: OPOB 18:43 → OBGYN 18:44
PROVIDERS: Visit Provider Family Medicine
DX: O26.899 Other specified pregnancy related conditions, unspecified trimester (principal); Z3A.00 Weeks of gestation of pregnancy not specified; R10.9 Unspecified abdominal pain; R10.2 Pelvic and perineal pain
CPT/HCPCS: 59025; 99211

== ENCOUNTER 2023-01-20 14:10 | Outpatient (CLI) | payer MEDICAID, SELFPAY ==
[2023-01-20 14:10] VITALS: BMI 34.5
[2023-01-20 14:23] VITALS: BP 123/71; PULSE 120
[2023-01-20 14:38] VITALS: BP 114/66; PULSE 109
[2023-01-20 14:53] VITALS: BP 114/68; PULSE 122
[2023-01-20 15:09] VITALS: BP 107/64; PULSE 122
[2023-01-20 15:23] VITALS: BP 108/62; PULSE 109
== END 2023-01-20 15:20 | disposition home or self-care (01) ==
LOC: OPOB 14:13 → OBGYN 14:15
PROVIDERS: Visit Provider Family Medicine
DX: O26.899 Other specified pregnancy related conditions, unspecified trimester (principal); Z3A.00 Weeks of gestation of pregnancy not specified; R10.9 Unspecified abdominal pain
CPT/HCPCS: 59025; 99211

== ENCOUNTER 2023-01-21 | Outpatient (CLI) | payer MEDICAID, SELFPAY ==
[2023-01-21] VITALS (13 sets, daily range): BP systolic 84–115; BP diastolic 49–67; PULSE 78–107; RESP 16; BMI 34.5
== END 2023-01-21 03:40 | disposition home or self-care (01) ==
LOC: OPOB 00:04 → OBGYN 00:05
PROVIDERS: Visit Provider Family Medicine
DX: O26.899 Other specified pregnancy related conditions, unspecified trimester (principal); Z3A.00 Weeks of gestation of pregnancy not specified; R10.9 Unspecified abdominal pain
CPT/HCPCS: 59025; 99211

== ENCOUNTER 2023-01-23 07:26 | Inpatient (IN) | payer MEDICAID, SELFPAY ==
[2023-01-23] VITALS (50 sets, daily range): BP systolic 94–136; BP diastolic 37–76; PULSE 81–130; RESP 16–18; TEMP 35.1–37.1; O2SAT 96–99; BMI 34.3
[2023-01-23 06:52] LABS: Bilirubin Urine Neg (Negative); Blood Urine Neg (Negative); Glucose Urine UA Norm (Normal); Ketones Urine 3+ (Negative); Leukocyte Esterase Urine Trace (Negative); Nitrate Urine Negative (Negative); Protein Urine Neg (Negative); RBC Urine RARE /hpf (0-2); Specific Gravity, Urine 1.015 (1.005-1.030); Urine Appearance Clear (CLEAR); Urine Color Yellow (Yellow); Urobilinogen Urine 1 mg/dL (Negative); WBC Urine 0-4 /hpf (0-5); pH Urine 6.5 (5-7)
[2023-01-23 06:53] LABS: Add Urine Culture? No; Bacteria Urine 1+ /hpf; Mucus Urine 1+ /hpf
[2023-01-23 07:29] LABS: Basophils % 0.2 %; Eosinophils % 0.3 %; Hematocrit 28.7 % (36-47); Lymphocytes # 1.6 10^3/uL (0.8-4.8); Lymphocytes % 14.1 %; Mean Corpuscular HGB Conc 32.1 g/dL (30-55); Mean Corpuscular Hemoglobin 24.7 pg (27-33); Mean Corpuscular Volume 76.9 fl (85-98); Mean Platelet Volume 11.5 fL (7.4-10.4); Monocytes # 0.7 10^3/uL (0.2-0.9); Monocytes % 6.1 %; Neutrophils # 8.83 10^3/uL (1.8-7.7); Neutrophils % 78.3 %; Nucleated Red Blood Cells % 0 %; Platelet Count 250 10^3/cmm (157-399); Red Blood Count 3.73 10^6/uL (3.85-5.65); Red Cell Distribution Width 14.5 % (12.1-15.1); White Blood Count 11.27 10^3/uL (3.29-11.43)
[2023-01-23] MEDS: alum-mag-hydroxide-sime 30 mL UDC PO (09:00)
[2023-01-23] MEDS: lactated ringers 1,000 ML 999 ML IV ×2 (09:19→10:25)
--- NOTE | 2023-01-23 10:21 | ANES.PREANE2 ---
Pre-Anesthetic Assessment Height/Weight: Height 1.68 m Weight 96.615 kg Temp Pulse BP O2 Del Method 97.2 F L 88 120/67 Room Air 01/23/23 08:57 01/23/23 08:58 01/23/23 08:58 01/23/23 07:12 Preop Diagnosis: labor pain epidural Familial anesthetic complications: none Was Beta Stephanie taken within 24 hours: N/A Was Clonidine taken within 24 hours: N/A Social No alcohol and No tobacco Exam alert, oriented x 3, clear to auscultation bilaterally and regular rate & rhythm Airway Submandibular: within normal limits Cervical ROM: within normal limits Mallampati: Class II Dentition: full Pulmonary None reported CV/HEM None reported None reported Hepatic None reported GI Gastroesophageal Reflux Disease Metabolic None reported Musc/skel None reported Neuropsych None reported Anesthetic Plan ASA status: 2 Anesthesia: Regional (specify below) Medications/Allergies Home Medications Medication Instructions Recorded Confirmed Last Taken Type 1 tab PO DAILY 12/12/22 01/21/23 01/20/23 08:00 History Allergies Allergy/AdvReac Type Severity Reaction Status Date / Time No Known Allergies Allergy Verified 06/06/21 11:52 Current Medications Generic Name Dose Route Start Last Admin Trade Name Freq PRN Reason Stop Dose Admin Al Hydrox/Mg Hydrox/Simethicone 30 ml 01/23/23 07:10 01/23/23 09:00 Zvrh-Obv-Xsowcupej-Seble 30 Ml Udc PO 30 ml Q4H PRN Administration Indigestion (Use 2nd) Lactated Ringer's 1,000 mls @ 999 mls/hr 01/23/23 09:12 01/23/23 09:19 Lactated Ringers IV 999 mls/hr .Q1H1M PRN Administration See label comments PFSH Anesthesia Medical History No pertinent past medical history Denies diabetes, asthma, hypertension, seizures, DVT/PE PMD: Dr. Means Surgical History Hx of tonsillectomy September 2018 Hx of wisdom tooth extraction 2015 Family History Grandfather Diabetes Paternal Family/Other Heart disease maternal aunt Denies family history of Colon cancer Ovarian cancer Hypercholesteremia Breast cancer Bleeding disorder Hypertension Uterine cancer Thyroid disease Stroke Social History Substance/Drug Use: never Female Reproductive History : 2 Data Anesthesia 01/23/23 06:45 Short CBC 01/23/23 Range/Units 06:45 WBC 11.27 (3.29-11.43) 10^3/uL Hgb 9.20 L (11.27-16.99) g/dL Hct 28.7 L (36-47) % MCV 76.9 L (85-98) fl Plt Count 250 (157-399) 10^3/cmm Neut % (Auto) 78.3 % Neut # (Auto) 8.83 H (1.8-7.7) 10^3/uL Urine 01/23/23 Range/Units 05:50 Urine Color Yellow (Yellow) Urine Appearance Clear (CLEAR) Urine pH 6.5 (5-7) Ur Specific [place] 1.015 (1.005-1.030) Urine Protein Neg (Negative) Urine Glucose (UA) Norm (Normal) Urine Ketones 3+ H (Negative) Urine Nitrate Negative (Negative) Urine Bilirubin Neg (Negative) Ur Leukocyte Esterase Trace H (Negative) Urine RBC Rare (0-2) /hpf Urine WBC 0-4 H (0-5) /hpf Blood Bank 01/23/23 06:45 Blood Type O Positive Rho(D) Type Positive Antibody Screen Negative Cardiac Studies: No Data to Display
[2023-01-23] MEDS: ROPivacaine syringe 100 MG/50 ML SYRINGE 10 MG EPIDURAL (10:45)
[2023-01-23] MEDS: ondansetron 2 mg/ML SDV 2 mL 4 MG IVP (10:45)
--- NOTE | 2023-01-23 10:48 | P.ANES_ITS ---
Anesthesia Procedures Procedure/Date: 01/23/23 epidural Procedure Narrative: epidural complete, bolus given, epidural pump initiated with PROPERTY INSURANCE CLAIMS EXAMINER education given, vitals taken during procedure and satisfactory throughout, patient admits to decrease pain, report of procedure to OB RN Epidural: Time Out Performed: Yes Consents Signed: Procedure Consent Consent: requested by attending/covering physician, from patient, risks and benefits reviewed and patient agrees to proceed Lumbar Level: L3-L4 Epidural position: sitting Epidural procedure: sterile prep of area, 1% lidocaine to numb the area (3 mL), 18 g needle, negative for paresthesia passed, neg for paresthesia, test dose given, 1.5% xylocaine 1:200k epi (5 mL), 0.2% Ropivacaine bolus ml (5 mL), placed PCEA, no systemic response, sterile dressing applied, L.U.D. no apparent complications and 0.2% Ropiavacaine @ mls/hr (13 mL/hr)
--- NOTE | 2023-01-23 13:24 | PM.DELIVERY ---
Delivery Note: Date of delivery: January 23, 2023 Estimated blood loss (mL): 75 Delivery: DELIVERY: The patient progressed to complete without difficulty. She delivered a male with a weight of 8 pounds 8 ounces with Apgars of 9, 9. The baby was delivered from the FILI position and placed on the mother's abdomen. The cord was then clamped and cut. There was no nuchal cord. There was no meconium. The placenta and 3 vessel cord were delivered intact shortly thereafter. The perineum and vaginal vault were carefully examined. No lacerations were noted. Both the mother and the baby were in stable condition. History History History 1 Term 1 0 Miscarriages/Ectopic 0 Living Children 1 Coding Level of Care Code Acute Code for Chg Fwd Diagnoses
[2023-01-23] MEDS: ibuprofen 800 mg tablet PO ×2 (15:59→20:29)
[2023-01-23] MEDS: docusate sodium 100 mg Capsule PO (18:43)
[2023-01-24] MEDS: calcium carbonate 500 mg Chew Tablet 1000 MG PO (01:02)
[2023-01-24 02:54] LABS: Hematocrit 28.9 % (36-47); Mean Corpuscular HGB Conc 31.5 g/dL (30-55); Mean Corpuscular Hemoglobin 24.6 pg (27-33); Mean Corpuscular Volume 78.1 fl (85-98); Mean Platelet Volume 11.7 fL (7.4-10.4); Platelet Count 227 10^3/cmm (157-399); Red Cell Distribution Width 14.6 % (12.1-15.1); White Blood Count 13.48 10^3/uL (3.29-11.43)
[2023-01-24] MEDS: HYDROcodone-acetaminophen 5-325 mg Tablet PO (05:36)
[2023-01-24 05:40] VITALS: BP 120/60; PULSE 79; RESP 16; TEMP 36.6; O2SAT 98
--- NOTE | 2023-01-24 08:00 | ANE.PACU2 ---
Inpatient post-anesthesia follow up: Airway intact: Yes Vital signs: Temperature 97.7 F Pulse Rate 86 Respiratory Rate 16 Blood Pressure 125/59 Pulse Oximetry 98 Oxygen Delivery Me thod Room Air Oxygen Flow Rate Fraction of Inspir ed Oxygen Hydration adequate: Yes Nausea and vomiting: No Pain level: 1 Mental status: Baseline
[2023-01-24] MEDS: prenatal vitamin Capsule 1 CAP PO (09:49)
[2023-01-24] MEDS: docusate sodium 100 mg Capsule PO (09:49)
[2023-01-24] MEDS: ibuprofen 800 mg tablet PO (09:49)
[2023-01-24 09:55] VITALS: BP 106/80; PULSE 88; RESP 16; TEMP 36.6; TEMP 36.7; O2SAT 98
--- NOTE | 2023-01-24 10:28 | PM.OBGYDC ---
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 An amniotomy was performed. She progressed to complete and unremarkable delivery of a healthy appearing male infant. Her course was also unremarkable. Her bleeding was within normal limits. Her pain was well controlled. There were no concerns. Information Peripartum Data: Infant Delivery Method: Vaginal Physical Exam Narrative: The patient is alert. She appears comfortable. Her heart has a regular rate and rhythm with no murmurs appreciated. Lungs are clear to auscultation bilaterally. Her fundus is firm and below the umbilicus. Urinary Catheter Management: Ochoa: Cath Placed During This Visit: yes, but has since been removed by the nurse Reason for Continuing Indwelling Catheter: Decision to DC Catheter Urinary Catheter Date of Insertion: 01/23/23 Urinary Catheter Time of Insertion: 11: Date Urinary Catheter Removed: 01/23/23 Time Urinary Catheter Discontinued: 13:00 History History History 1 Term 1 0 Miscarriages/Ectopic 0 Living Children 1 Discharge Data Studies Completed and Pending Laboratory Results WBC 13.48 10^3/uL (3.29-11.43) H 01/24/23 02:25 RBC 3.70 10^6/uL (3.85-5.65) L 01/24/23 02:25 Hgb 9.10 g/dL (11.27-16.99) L 01/24/23 02:25 Hct 28.9 % (36-47) L 01/24/23 02:25 MCV 78.1 fl (85-98) L 01/24/23 02:25 MCH 24.6 pg (27-33) L 01/24/23 02:25 MCHC 31.5 g/dL (30-55) 01/24/23 02:25 RDW 14.6 % (12.1-15.1) 01/24/23 02:25 Plt Count 227 10^3/cmm (157-399) 01/24/23 02:25 MPV 11.7 fL (7.4-10.4) H 01/24/23 02:25 Neut % (Auto) 78.3 % 01/23/23 06:45 Lymph % (Auto) 14.1 % 01/23/23 06:45 [place] % (Auto) 6.1 % 01/23/23 06:45 Eos % (Auto) 0.3 % 01/23/23 06:45 Baso % (Auto) 0.2 % 01/23/23 06:45 Neut # (Auto) 8.83 10^3/uL (1.8-7.7) H 01/23/23 06:45 Lymph # (Auto) 1.6 10^3/uL (0.8-4.8) 01/23/23 06:45 [place] # (Auto) 0.7 10^3/uL (0.2-0.9) 01/23/23 06:45 Eos # (Auto) 0.0 10^3/uL (0.0-0.8) 01/23/23 06:45 Baso # (Auto) 0.0 10^3/uL (0.0-0.1) 01/23/23 06:45 Nucleated RBC % (auto) 0 % 01/23/23 06:45 Nucleated RBCs # 0.0 /100WBC 01/23/23 06:45 Urine Color Yellow (Yellow) 01/23/23 05:50 Urine Appearance Clear (CLEAR) 01/23/23 05:50 Urine pH 6.5 (5-7) 01/23/23 05:50 Ur Specific [place] 1.015 (1.005-1.030) 01/23/23 05:50 Urine Protein Neg (Negative) 01/23/23 05:50 Urine Glucose (UA) Norm (Normal) 01/23/23 05:50 Urine Ketones 3+ (Negative) H 01/23/23 05:50 Urine Blood Neg (Negative) 01/23/23 05:50 Urine Nitrate Negative (Negative) 01/23/23 05:50 Urine Bilirubin Neg (Negative) 01/23/23 05:50 Urine Urobilinogen 1 mg/dL (Negative) H 01/23/23 05:50 Ur Leukocyte Esterase Trace (Negative) H 01/23/23 05:50 Urine RBC Rare /hpf (0-2) 01/23/23 05:50 Urine WBC 0-4 /hpf (0-5) H 01/23/23 05:50 Ur Squamous Epith Cells 5-10 /hpf (0-5) H 01/23/23 05:50 Amorphous Sediment Not Reportable 01/23/23 05:50 Urine Bacteria 1+ /hpf (NONE) H 01/23/23 05:50 Urine Mucus 1+ /hpf 01/23/23 05:50 Blood Type O Positive 01/23/23 06:45 Rho(D) Type Positive 01/23/23 06:45 Antibody Screen Negative 01/23/23 06:45 Vitals Last Vital Signs Temp 98.0 F 01/24/23 09:55 Pulse 88 01/24/23 09:55 Resp 16 01/24/23 09:55 BP 106/80 01/24/23 09:55 Pulse Ox 98 01/24/23 09:55 O2 Del Method Room Air 01/24/23 09:55 Results Labs OB ([facility]): Obstetrics US 03/19/20 Obstetrics US/Biophysical Profile 06/27/20 Blood Type O Positive 01/23/23 Antibody Screen Negative 01/23/23 Hct 28.9 % (36-47) L 01/24/23 Hgb 9.10 g/dL (11.27-16.99) L 01/24/23 Rho(D) Type Positive 01/23/23 Plt Count 227 10^3/cmm (157-399) 01/24/23 Hep Bs Antigen Non-reactive (Nonreactive) 01/10/20 Hepatitis C Antibody Non-reactive (Nonreactive) 01/10/20 Rubella IgG Antibody 54.8 IU/mL (0.0-10.0) H 01/10/20 RPR Nonreactive (Nonreactive) 01/10/20 Glucose 1 Hr 50 gm 131 mg/dL (85-140) 05/18/20 HCG, Qual Negative (Negative) 08/05/21 Urine Opiates Screen Negative ng/mL (Negative) 07/10/20 Ur Barbiturates Screen Negative ng/mL (Negative) 07/10/20 Ur Phencyclidine Scrn Negative ng/mL (Negative) 07/10/20 Ur Amphetamines Screen Negative ng/mL (Negative) 07/10/20 U Benzodiazepines Scrn Negative ng/mL (Negative) 07/10/20 Urine Cocaine Screen Negative ng/mL (Negative) 07/10/20 U Marijuana (THC) Screen Negative ng/mL (Negative) 07/10/20 Micro Urine Specimen 05/13/20 Discharge Plan Discharge Patient Disposition: Home Condition: Stable Prescriptions: New ibuprofen 800 mg Tablet 800 mg PO TID Qty: 45 0RF Continued capsule 1 tab PO DAILY Discharge Orders: Discharge Order (Routine); Ordered 01/24/23 Ordered By: Jesus Ying Referrals: Jesus Ying MD [Physician] - 6 Weeks Discharge Diet: Usual diet Discharge Activity: Limit activity as instructed Patient Instructions: Depression (DC), Bleeding (DC), Preeclampsia and Eclampsia After Delivery (GEN), OB Discharge Report, OB Food/Drug Interaction Guide, OB Care at Home, Opioid Safety, OB Vaginal Deliveries Discharge Attestations [employer]ANT AND INSTRUMENT ENGINEER Time Spent in Discharge Care*: less than 30 min Coding Level of Care Code Acute Code for Chg Fwd Diagnoses
[2023-01-24 14:49] VITALS: BP 125/59; PULSE 86; RESP 16; TEMP 36.5; O2SAT 98
--- NOTE | 2023-02-23 17:22 | PM.OPHPUD ---
Labor & Delivery H&P Update Date of Procedure: January 23, 2023 Date H&P Performed: 01/23/23 Changes to previous documentation: Dominguez Admission Diagnosis: 22-year-old 2 para 1-0-0-1 at 38 weeks presenting with contractions Preop diagnosis: labor pain Other information: The patient presented to the hospital after having contractions since 1 AM. She had a relatively unremarkable . Her labs were also relatively unremarkable. Her blood type was O+. Her antibody screen was negative. Her HIV, GC, chlamydia, RPR and hepatitis panels were negative. Her drug screen was negative. She passed her glucose screen. She is rubella immune. And she is GBS negative.
== END 2023-01-24 14:45 | disposition home or self-care (01) | DRG 807 ==
LOC: OPOB 07:26 → OBGYN 07:26
PROVIDERS: Admitting Provider Family Medicine; Visit Provider Family Medicine
DX: O80 Encounter for full-term uncomplicated delivery (principal); Z37.0 Single live birth; Z3A.38 38 weeks gestation of pregnancy
CPT/HCPCS: 36415; 51702; 59025; 59409; 81001; 85025; 85027; 86850; 86900; 96374; 99211; J2405; J2795; J7120